=== PATIENT | male | born 1985 | race Caucasian/White ===

== ENCOUNTER 2016-04-22 15:15 | Emergency (ER) | payer OTHER ==
[~2016-04-22] VITALS: Ht 175.3 cm; Wt 65.9 kg
[2016-04-22 15:20] VITALS: BP 164/85; PULSE 98; RESP 20; O2SAT 98
--- NOTE | 2016-04-22 16:30 | DRSVH ---
PROCEDURE: X-RAY RIGHT FOREARM, TWO VIEWS ([id number]) INDICATIONS: TRAUMA TECHNIQUE: 2 views of the forearm were acquired. COMPARISON: None. FINDINGS: Bones: No fractures or dislocations. No suspicious bony lesions. Soft tissues: No suspicious soft tissue calcifications or masses. IMPRESSION: No acute fracture. No osseous lesion. If symptoms and/or clinical suspicion for patholog y persist, further assessment with repeat, or advanced imaging (e.g., CT, MRI, or bone scan) may be h elpful for further assessment. Dictated by: Lorenza Figueredo M.D. on 04/22/2016 at 16:29 Approved by: Lorenza Figueredo M.D. on 04/22/2016 at 16:29
--- NOTE | 2016-04-22 22:16 | ED.REPORT ---
HPI-Extremity Problem Upper Date of Service Apr 22, 2016 ED Provider: Gilberto Jarquin MD 30 year old male presents to the ER complaining of a right forearm laceration secondary to getting his arm caught in a belt puncher earlier today. Patient denies any other injuries. His tetanus vaccination is up to date. Nursing Notes Stated Complaint: RIGHT FOREARM LACERATION Chief Complaint: Extremity Trauma Nursing Notes Reviewed: Yes Allergies: Coded Allergies: No Known Allergies (Unverified , 08/01/15) Scheduled Silver Sulfadiazine (Silvadene) 20 Gm Cream..g. 20 GM TP BID Apply to abraded area twice daily after cleaning. General Time Seen by MD: 22:16 Chief Complaint Forearm injury right Hx Obtained From: Patient Arrived By: Walk-in Onset Occurred: 9 - 12 hours ago Symptom Duration: Since onset Caused by: Accidental Context: Occurred at: Home injury Location: : Forearm right Quality: Painful Severity: Current: Moderate Severity: Maximum: Moderate Pertinent Negative: Pt denies other symptoms Immunizations: Tetanus up to date, Tetanus w/in 5 - 10 yrs Past Medical History Past Medical History Healthy Past Surgical History None reported Smoking History Unknown if Ever Smoker Ambulatory Status Independent Review of Systems Musculoskeletal: Reports: Extremity pain (Forearm, Right), Denies: Back pain, Joint pain, Lumbar pain, Neck pain, Thoracic pain Neurologic: Denies: Headache, Syncope Complete sys rev & neg: except as marked. Physical Exam Initial Vital Signs Vital Signs (First) Date Time Temp Pulse Resp B/P Pulse Ox O2 Delivery O2 Flow Rate FiO2 04/22/16 15:20 37.2 98 20 164/85 98 Room Air Initial VS: Reviewed General/Constitutional: Well-developed, Well-nourished Head / Eyes: Atraumatic, Normocephalic Neck: Supple, Non-tender, Full range of motion Lower Extremities: Vascular intact, Neuro intact, No swelling, No tenderness Skin: Warm, Dry, No cyanosis Neurologic: Alert, Oriented, Nonfocal Upper Extremity / MS: Full range of motion, Neurologic intact, Vascular intact RIGHT FOREARM: 10cm x 5cm volar abrasion with erosion through epidermis into hypodermis in two 1cm square patches. Wrist / Hand: Full range of motion, Non-tender, Neurologic intact, Vascular intact Interpretation & Diagnostics X-Ray Interpretation Xray Interpretation: IMPRESSION: No acute fracture. No osseous lesion. If symptoms and/or clinical suspicion for pathology persist, further assessment with repeat, or advanced imaging (e.g., CT, MRI, or bone scan) may be helpful for further assessment. Dictated by: Lorenza Figueredo M.D. on 04/22/2016 at 16:29 Approved by: Lorenza Figueredo M.D. on 04/22/2016 at 16:29 Study Performed: X-RAY RIGHT FOREARM, TWO VIEWS ([id number]) X-Ray Ordered: Radius ulna right Interpretation / Wet Read by: Interpret - Radiologist Re-Eval/Medical Decision Counseled Regarding: Diagnosis, Need for follow-up, When/why to return to ED Discharge & Departure Impression: Primary Impression: Forearm abrasion Encounter type: initial encounter Laterality: right Qualified Code: S50.811A - Abrasion of right forearm, initial encounter Disposition: Home Discharge Condition All VS Reviewed: Yes Condition: Stable Patient Instructions: Abrasion (ED) Additional Instructions: You have a deep abrasion to your arm. The treatment is best managed as if this were a burn. I recommended gentle washing with soapy water twice daily and the application of Silvadene cream followed by moist gauze. And then dry gauze dressing over the top. Follow-up with the clinic Wednesday to assess wound healing. For pain and I recommend ibuprofen 800 mg every 8 hours and hydrocodone as needed for more severe pain. I apologize for the very long wait. Thank you for your patience. Referrals: KOSTA RODRIGUEZ MD (PCP) Scribe Attestation Portions of this note were transcribed by Tyler Givens. I, Dr. Jarquin, personally performed the history, physical exam and medical decision-making; I reviewed and confirmed the accuracy of the information in the transcribed note. Signed by: Cem Kapoor, 04/22/2016 and 23:13 copies to: KOSTA RODRIGUEZ MD, Kirk H MD Apr 22, 2016 22:16 TYLER GIVENS Apr 22, 2016 22:43
[2016-04-22] MEDS ORDERED: Lidocaine 2% 5 mL Topical Jelly ONE (22:52)
[2016-04-22] MEDS ORDERED: SILV20CR4 TP (23:08)
[2016-04-22] MEDS ORDERED: _HYDROcodone/APAP 5-325 mg Tablet PO PRN (23:10)
== END 2016-04-23 00:10 | disposition home or self-care (01) ==
LOC: SED 15:15
DX: S50.811A Abrasion of right forearm, initial encounter (principal); W31.2XXA Contact with powered woodworking and forming machines, initial encounter; Y93.9 Activity, unspecified; Y92.009 Unspecified place in unspecified non-institutional (private) residence as the place of occurrence of the external cause; Y99.8 Other external cause status